=== PATIENT | male | born 1975 | race Caucasian/White ===

== ENCOUNTER 2018-07-13 21:49 | Emergency (ER) | payer BC ==
[~2018-07-13] VITALS: Ht 177.8 cm; Wt 80.0 kg
[2018-07-13 22:17] LABS: BASOPHILS % (AUTO) 0.4 % (0-1); EOSINOPHILS # (AUTO) 0.2 X10'3 (0-0.9); EOSINOPHILS % (AUTO) 2.7 % (0-6); HEMATOCRIT 43.4 % (42.0-52.0); HEMOGLOBIN 14.8 g/dl (14.0-17.9); LYMPHOCYTES # (AUTO) 3.3 X10'3 (1.1-4.8); LYMPHOCYTES % (AUTO) 35.9 % (21-51); MEAN CORPUSCULAR HEMOGLOBIN 28.8 PG (27.0-31.0); MEAN CORPUSCULAR HGB CONC 34.1 % (33.0-36.5); MEAN CORPUSCULAR VOLUME 84.4 FL (78-98); MEAN PLATELET VOLUME 8.2 FL (7.4-10.4); MONOCYTES # (AUTO) 0.6 X10'3 (0-0.9); MONOCYTES % (AUTO) 6.9 % (2-12); NEUTROPHILS # (AUTO) 4.9 X10'3 (1.8-7.7); NEUTROPHILS % (AUTO) 54.1 % (42-75); PLATELET COUNT 283 X10'3 (140-440); RED BLOOD COUNT 5.14 X10'6 (4.70-6.10); RED CELL DISTRIBUTION WIDTH 12.7 % (11.5-14.5); WHITE BLOOD COUNT 9.1 X10'3 (4.5-11.0)
[2018-07-13 22:30] LABS: ALANINE AMINOTRANSFERASE 25 U/L (12-78); ALBUMIN 4.1 G/DL (3.4-5.0); ALBUMIN/GLOBULIN RATIO 1.1 (1.1-1.5); ALKALINE PHOSPHATASE 81 IU/L (46-116); ANION GAP 12 (8-16); ASPARTATE AMINO TRANSFERASE 36 U/L (10-37); BILIRUBIN,TOTAL 0.7 MG/DL (0.1-1.0); BLOOD UREA NITROGEN 21 MG/DL (7-18); BUN/CREATININE RATIO 19.6 (5.4-32.0); CALCIUM 8.4 MG/DL (8.5-10.1); CHLORIDE 101 MMOL/L (99-107); CREATININE 1.07 MG/DL (0.60-1.10); GLUCOSE 163 MG/DL (70-104); SODIUM 139 MMOL/L (135-145); TOTAL CARBON DIOXIDE 26.1 MMOL/L (24-32); TOTAL PROTEIN 7.9 G/DL (6.4-8.2); eGFR 76 ML/MIN
[2018-07-13 22:37] LABS: PARTIAL THROMBOPLASTIN TIME 26 SECONDS (22-32)
[2018-07-13] MEDS ORDERED: magnesium oxide 400mg tablet PO ONE ×2 (22:40→23:00)
[2018-07-13] MEDS ORDERED: potassium Cl 20 mEq SR tablet PO ONE ×2 (22:40→23:00)
[2018-07-13 22:55] LABS: MAGNESIUM 2.3 MG/DL (1.5-2.4)
[2018-07-13 23:14] LABS: ETHANOL < 0.010 GM/DL (0.0-0.010)
[2018-07-13] MEDS ORDERED: POTA10TA19 PO (23:19)
[2018-07-13 23:27] VITALS: BP 127/95
== END 2018-07-13 23:28 | disposition home or self-care (01) ==
LOC: ER 21:49
DX: R07.89 Other chest pain (principal); F11.23 Opioid dependence with withdrawal; E87.6 Hypokalemia; R25.2 Cramp and spasm; Z88.1 Allergy status to other antibiotic agents
CPT/HCPCS: 36415; 71045; 80053; 80320; 83735; 84484; 85025; 85610; 85730; 93005; 99285

== ENCOUNTER 2019-10-25 00:27 | Emergency (ER) | payer BC ==
[~2019-10-25] VITALS: Ht 177.8 cm; Wt 90.9 kg
--- NOTE | 2019-10-25 00:47 | NUR ---
[facility] contacted.pt need medical exam and treat the symptoms per [facility].
--- NOTE | 2019-10-25 01:00 | NUR ---
DR BARAKAT AT BEDSIDE, PATIENT REFUSED ATIVAN ORDERED BY .
[2019-10-25 01:22] LABS: BASOPHILS # (AUTO) 0.1 X10'3 (0-0.2); BASOPHILS % (AUTO) 0.6 % (0-1); EOSINOPHILS # (AUTO) 0.3 X10'3 (0-0.9); EOSINOPHILS % (AUTO) 3.7 % (0-6); HEMATOCRIT 39.7 % (42.0-52.0); HEMOGLOBIN 14.1 g/dl (14.0-17.9); LYMPHOCYTES # (AUTO) 2.8 X10'3 (1.1-4.8); LYMPHOCYTES % (AUTO) 35.1 % (21-51); MEAN CORPUSCULAR HEMOGLOBIN 29.5 PG (27.0-31.0); MEAN CORPUSCULAR HGB CONC 35.6 g/dL (33.0-36.5); MEAN CORPUSCULAR VOLUME 82.8 FL (78-98); MEAN PLATELET VOLUME 7.7 FL (7.4-10.4); MONOCYTES # (AUTO) 0.8 X10'3 (0-0.9); NEUTROPHILS % (AUTO) 50.6 % (42-75); PLATELET COUNT 263 X10'3 (140-440); RED BLOOD COUNT 4.79 X10'6 (4.70-6.10); RED CELL DISTRIBUTION WIDTH 12.8 % (11.5-14.5); WHITE BLOOD COUNT 7.9 X10'3 (4.5-11.0)
[2019-10-25 01:33] LABS: ALANINE AMINOTRANSFERASE 24 U/L (12-78); ALBUMIN 3.8 G/DL (3.4-5.0); ALKALINE PHOSPHATASE 84 IU/L (46-116); ANION GAP 9 (8-16); ASPARTATE AMINO TRANSFERASE 26 U/L (10-37); BILIRUBIN,TOTAL 0.5 MG/DL (0.1-1.0); BLOOD UREA NITROGEN 24 MG/DL (7-18); BUN/CREATININE RATIO 23.8 (5.4-32.0); CALCIUM 8.4 MG/DL (8.5-10.1); CHLORIDE 104 MMOL/L (99-107); CREATININE 1.01 MG/DL (0.60-1.10); GLUCOSE 176 MG/DL (70-104); MAGNESIUM 2.1 MG/DL (1.5-2.4); POTASSIUM 3.3 MMOL/L (3.5-5.1); SODIUM 139 MMOL/L (135-145); TOTAL CARBON DIOXIDE 26.1 MMOL/L (24-32); TOTAL PROTEIN 7.5 G/DL (6.4-8.2); eGFR 81 ML/MIN
[2019-10-25 01:56] VITALS: BP 148/78
== END 2019-10-25 01:59 | disposition home or self-care (01) ==
LOC: ER 00:27
DX: R00.2 Palpitations (principal); R42 Dizziness and giddiness; Z88.1 Allergy status to other antibiotic agents
CPT/HCPCS: 36415; 71045; 80053; 83735; 84484; 85025; 93005; 99284

== ENCOUNTER 2020-02-07 12:36 | Emergency (ER) | payer BC ==
[~2020-02-07] VITALS: Ht 177.8 cm; Wt 90.9 kg
[2020-02-07 12:38] VITALS: BP 145/101
[2020-02-07] MEDS ORDERED: ALBU6.7H9 INH (13:29)
[2020-02-07] MEDS ORDERED: PRED20TA PO (13:29)
[2020-02-07] MEDS ORDERED: BENZ-38 PO (13:29)
[2020-02-07] MEDS ORDERED: AZIT250T2 PO (13:29)
== END 2020-02-07 13:42 | disposition home or self-care (01) ==
LOC: ER 12:36
DX: J04.0 Acute laryngitis (principal); Z88.1 Allergy status to other antibiotic agents; Z79.899 Other long term (current) drug therapy
CPT/HCPCS: 71045; 99283

== ENCOUNTER 2020-12-20 05:20 | Day surgery (SDC) | payer BC ==
[2020-12-13 11:15] LABS: BASOPHILS # (AUTO) 0.1 X10'3 (0-0.2); BASOPHILS % (AUTO) 0.8 % (0-1); EOSINOPHILS # (AUTO) 0.2 X10'3 (0-0.9); EOSINOPHILS % (AUTO) 2.5 % (0-6); LYMPHOCYTES # (AUTO) 1.9 X10'3 (1.1-4.8); LYMPHOCYTES % (AUTO) 27.6 % (21-51); MEAN CORPUSCULAR HEMOGLOBIN 28.9 PG (27.0-31.0); MEAN CORPUSCULAR HGB CONC 34.8 g/dL (33.0-36.5); MEAN CORPUSCULAR VOLUME 83.1 FL (78-98); MEAN PLATELET VOLUME 7.7 FL (7.4-10.4); MONOCYTES # (AUTO) 0.7 X10'3 (0-0.9); NEUTROPHILS # (AUTO) 4.1 X10'3 (1.8-7.7); NEUTROPHILS % (AUTO) 59.1 % (42-75); PRE OP HEMATOCRIT 42.7 % (42.0-52.0); PRE OP HEMOGLOBIN 14.9 g/dL (14.0-17.9); PRE OP PLATELET COUNT 276 X10'3 (140-440); RED BLOOD COUNT 5.14 X10'6 (4.70-6.10); RED CELL DISTRIBUTION WIDTH 12.6 % (11.5-14.5)
[2020-12-13 11:15] LABS: CLARITY,URINE CLEAR (Clear); COLOR,URINE YELLOW (Yellow); GLUCOSE, URINE NEGATIVE (Neg); KETONES,URINE NEGATIVE (Neg); LEUKOCYTE ESTERASE ,URINE NEGATIVE (Neg); NITRITES, URINE NEGATIVE (Neg); OCCULT BLOOD,URINE NEGATIVE (Neg); PROTEIN,URINE NEGATIVE (Neg); UROBILINOGEN,URINE 0.2 E.U/dL (0.2-1.0)
[2020-12-13 11:28] LABS: UA COLLECTION TYPE CLN CATCH MIDSTREAM
[2020-12-13 11:46] LABS: ALBUMIN 4.2 G/DL (3.4-5.0); ALKALINE PHOSPHATASE 82 IU/L (46-116); BLOOD UREA NITROGEN 22 MG/DL (7-18); CALCIUM 9.1 MG/DL (8.5-10.1); CHLORIDE 105 MMOL/L (99-107); CREATININE 0.88 MG/DL (0.60-1.10); PRE OP ALT 39 U/L (30-65); PRE OP ANION GAP 9 (8-16); PRE OP AST 40 U/L (10-37); PRE OP BILIRUB, TOTAL 0.6 MG/DL (0.0-1.0); PRE OP GLUCOSE 106 MG/DL (70-104); PRE OP POTASSIUM 3.8 MMOL/L (3.4-5.1); PRE OP SODIUM 144 MMOL/L (135-145); TOTAL CARBON DIOXIDE 29.9 MMOL/L (24-32); TOTAL PROTEIN 8.3 G/DL (6.4-8.2); eGFR > 90 ML/MIN
[2020-12-20] VITALS (11 sets, daily range): BP systolic 118–136; BP diastolic 71–89
[~2020-12-20] VITALS: Ht 175.3 cm; Wt 98.8 kg
[~2020-12-20 05:20] MED LIST: ALBU17AE26 PO; LEVO75TA56 PO; LORA10TA61 PO; METH10SO PO; MONT10TA32 PO; ringers solution, lacted 1,000 ML IV SCH
[2020-12-20] MEDS ORDERED: famotidine 20mg tablet PO ONE (05:30)
[2020-12-20] MEDS ORDERED: MESSAGE TO NURSING IV ONE (05:30)
[2020-12-20] MEDS ORDERED: albuterol 2.5 MG/3 ML nebule NEB ONE (05:30)
[2020-12-20] MEDS ORDERED: BUPIVAcaine/PF 2.5mg/ml (0.25%) 10ml vial ONE (07:13)
[2020-12-20] MEDS ORDERED: BUPIVAcaine/PF 2.5 mg/ml (0.25%) 30ml vial ONE (07:13)
[2020-12-20] MEDS ORDERED: BUPIVACAINE liposomal/PF 13.3 MG/ML vial IM ONE (07:14)
[2020-12-20] MEDS ORDERED: fentaNYL/PF 50MCG/1 ML 2ML syringe ONE ×2 (07:20→07:57)
[2020-12-20] MEDS ORDERED: midazolam 1 mg/ML 2ml injection ONE (07:20)
[2020-12-20] MEDS ORDERED: LIDOcaine 2% (20mg/ml) 5ml vial ONE (07:21)
[2020-12-20] MEDS ORDERED: rocuronium 10mg/ml inj IV ONE (07:21)
[2020-12-20] MEDS ORDERED: propofol inj 20 ML IV ONE (07:21)
[2020-12-20] MEDS ORDERED: clindamycin phosphate 150mg/ml inj. ONE ×2 (07:44→07:45)
[2020-12-20] MEDS ORDERED: glycopyrrolate 0.2mg/ml inj ONE (07:53)
[2020-12-20] MEDS ORDERED: dexamethasone sod phosphate 4mg/ml inj. ONE (07:53)
[2020-12-20] MEDS ORDERED: ondansetron/PF 4mg/2ml inj ONE (07:53)
[2020-12-20] MEDS ORDERED: neostigmine methylsulfate 1 MG/ML 10ml vial ONE (07:53)
[2020-12-20] MEDS ORDERED: ondansetron/PF 4mg/2ml inj IV PRN (08:25)
[2020-12-20] MEDS ORDERED: ringers solution, lacted 1,000 ML IV SCH (08:25)
[2020-12-20] MEDS ORDERED: meperidine/PF 25mg/ml syringe IV PRN ×3 (08:25)
[2020-12-20] MEDS ORDERED: morphine 4 MG/ML inj SYRINge IV PRN (08:25)
[2020-12-20] MEDS ORDERED: proCHLORperazine 10 MG/2 ml inj IV PRN (08:25)
[2020-12-20] MEDS ORDERED: morphine 2 MG/ML inj. syringe IV PRN (08:25)
[2020-12-20] MEDS ORDERED: acetaminophen 1,000mg/100ml IV 100 ML IV ONE (09:13)
[2020-12-20] MEDS ORDERED: ketorolac trometh. 30mg/ml inj. ONE (09:13)
--- NOTE | 2020-12-20 09:30 | NUR ---
Received from OR via BED , accompanied by Anesthesiologist DR ATKINSON and report given by Anesthesiolgist. PATIENT WAKING UP BUT VERY APNEC, NARCAN GIVEN PER DR ATKINSON..4MCG, NO S/S PAIN, V/S WNL, NEUROVASCULAR CHECKS INTACT, 20G PIV RUE, SCD ON, DERMABONDED LAP SIGHTS OF ABDOMEN CDI.
[2020-12-20] MEDS ORDERED: naloxone 0.4 mg/ml inj ONE (09:35)
[2020-12-20] MEDS ORDERED: ipratropium/albuterol 3ml nebule IH ONE (09:45)
--- NOTE | 2020-12-20 09:45 | NUR ---
PATIENT WAKING UP NOW, MOANING- SEE EMAR
--- NOTE | 2020-12-20 10:06 | NUR ---
VERBAL ORDER RECIEVED FROM DR FIELDS THAT HE DID NOT CARE IF HE DIDNT WRITE ORDERS ON THIS PATIENT AND TO WRITE DISCHARGE ORDERS THE SAME ON HIM ALL HIS OTHER PATIENTS. ORDERS WRITTEN BASED ON DR BLAKELY USUALLY PATTERN OF ORDERS FOR TYPICAL INGUINAL SURGERY BASED ON WHAT I WAS INSTRUCTED TO DO BY DR FIELDS DUE TO HIS ABILITY OR REFUSAL TO USE HIS WORDS TO COMMUNICATE ACCURATE CLEAR ORDERS.
[2020-12-20] MEDS ORDERED: HYDROcodone/acetaminophen 10/325mg tab PO ONE (10:15)
--- NOTE | 2020-12-20 11:20 | NUR ---
PATIENT A&OX4, DENIES PAIN, V/S WNL, NEUROVASCULAR CHECKS INTACT, 20G PIV RUE D/C, SCD OFF, LAP SIGHTS OF ABDOMEN CDI. SCRIPT SENT TO PATIENT PHARMACY FROM OFFICE AND HE HAS VOIDED. I HAVE REVIEWED D/C INSTRUCTIONS WITH PATIENT AND FAMILY AND THEY HAVE VERBALIZED UNDERSTANDING. PATIENT D/C HOME WITH ALL BELONGINGS AND FAMILY GAVE TRANSPORT HOME.
== END 2020-12-20 11:20 | disposition home or self-care (01) ==
LOC: PAS 05:20
PROVIDERS: ATTEND Surgery
DX: K40.90 Unilateral inguinal hernia, without obstruction or gangrene, not specified as recurrent (principal); D17.79 Benign lipomatous neoplasm of other sites; J45.909 Unspecified asthma, uncomplicated; F41.9 Anxiety disorder, unspecified; F32.9 Major depressive disorder, single episode, unspecified; F11.11 Opioid abuse, in remission; Z79.899 Other long term (current) drug therapy; Z20.822 Contact with and (suspected) exposure to COVID-19; Z88.1 Allergy status to other antibiotic agents; Z98.890 Other specified postprocedural states; Z85.850 Personal history of malignant neoplasm of thyroid
CPT/HCPCS: 36415; 49650; 80053; 81003; 82948; 85025; 93005; 94640; 94760; C1758; C1781; C9290; J0131; J1100; J1885; J2001; J2175; J2250; J2310; J2405; J2704; J2710; J3010; J3490; S2900; U0003; A4215; A4618; J7120

== ENCOUNTER 2021-02-02 09:46 | Outpatient (CLI) | payer BC ==
[~2021-02-02 09:46] MED LIST changes: +barium sulfate 450ml oral suspension ONE; -ringers solution, lacted 1,000 ML IV SCH
[2021-02-02] MEDS ORDERED: SIMETHICONE/SOD BICARB/CIT AC PACKET PO ONE (12:00)
== END 2021-02-02 23:59 | disposition home or self-care (01) ==
LOC: RAD 09:46
PROVIDERS: ATTEND Family Medicine
DX: R13.10 Dysphagia, unspecified (principal)
CPT/HCPCS: 74220

== ENCOUNTER 2022-03-09 10:42 | Emergency (ER) | payer BC ==
[~2022-03-09] VITALS: Ht 175.3 cm; Wt 88.0 kg
[~2022-03-09 10:42] MED LIST changes: +MONT-40 PO; -MONT10TA32 PO; -barium sulfate 450ml oral suspension ONE
[2022-03-09 11:29] LABS: BASOPHILS % (AUTO) 0.6 % (0-1); EOSINOPHILS # (AUTO) 0.1 X10'3 (0-0.9); HEMATOCRIT 41.8 % (42.0-52.0); HEMOGLOBIN 14.7 g/dl (14.0-17.9); LYMPHOCYTES # (AUTO) 1.9 X10'3 (1.1-4.8); LYMPHOCYTES % (AUTO) 36.5 % (21-51); MEAN CORPUSCULAR HGB CONC 35.2 g/dL (33.0-36.5); MEAN CORPUSCULAR VOLUME 82.4 FL (78-98); MEAN PLATELET VOLUME 7.7 FL (7.4-10.4); MONOCYTES # (AUTO) 0.4 X10'3 (0-0.9); MONOCYTES % (AUTO) 8.8 % (2-12); NEUTROPHILS # (AUTO) 2.7 X10'3 (1.8-7.7); NEUTROPHILS % (AUTO) 52.1 % (42-75); PLATELET COUNT 279 X10'3 (140-440); RED BLOOD COUNT 5.08 X10'6 (4.70-6.10); RED CELL DISTRIBUTION WIDTH 12.7 % (11.5-14.5); WHITE BLOOD COUNT 5.1 X10'3 (4.5-11.0)
[2022-03-09 11:46] LABS: ALANINE AMINOTRANSFERASE 29 U/L (12-78); ALBUMIN 4.2 G/DL (3.4-5.0); ALBUMIN/GLOBULIN RATIO 1.2 (1.1-1.5); ALKALINE PHOSPHATASE 78 IU/L (46-116); ANION GAP 6 (8-16); ASPARTATE AMINO TRANSFERASE 43 U/L (10-37); BILIRUBIN,TOTAL 1.3 MG/DL (0.1-1.0); BLOOD UREA NITROGEN 20 MG/DL (7-18); BUN/CREATININE RATIO 22.5 (5.4-32.0); CALCIUM 8.9 MG/DL (8.5-10.1); CHLORIDE 105 MMOL/L (99-107); CREATININE 0.89 MG/DL (0.60-1.10); GLUCOSE 103 MG/DL (70-104); POTASSIUM 3.6 MMOL/L (3.5-5.1); SODIUM 139 MMOL/L (135-145); TOTAL CARBON DIOXIDE 27.6 MMOL/L (24-32); TOTAL PROTEIN 7.7 G/DL (6.4-8.2); eGFR > 90 ML/MIN
[2022-03-09 15:01] VITALS: BP 118/74
== END 2022-03-09 15:04 | disposition home or self-care (01) ==
LOC: ER 10:43
DX: R07.89 Other chest pain (principal); F41.9 Anxiety disorder, unspecified; M79.602 Pain in left arm; F32.9 Major depressive disorder, single episode, unspecified; Z88.1 Allergy status to other antibiotic agents; Z79.899 Other long term (current) drug therapy; Z86.711 Personal history of pulmonary embolism
CPT/HCPCS: 36415; 71045; 80053; 83880; 84484; 85025; 93005; 99285

== ENCOUNTER 2023-07-22 17:01 | Emergency (ER) | payer BC ==
[~2023-07-22] VITALS: Ht 175.3 cm; Wt 84.4 kg
[2023-07-22 17:22] LABS: BASOPHILS # (AUTO) 0.1 X10'3 (0-0.2); EOSINOPHILS # (AUTO) 0.3 X10'3 (0-0.9); EOSINOPHILS % (AUTO) 3.9 % (0-6); HEMATOCRIT 44.5 % (42.0-52.0); HEMOGLOBIN 15.3 g/dl (14.0-17.9); LYMPHOCYTES # (AUTO) 2.5 X10'3 (1.1-4.8); LYMPHOCYTES % (AUTO) 37.6 % (21-51); MEAN CORPUSCULAR HEMOGLOBIN 29.6 PG (27.0-31.0); MEAN CORPUSCULAR HGB CONC 34.4 g/dL (33.0-36.5); MEAN CORPUSCULAR VOLUME 86.3 FL (78-98); MONOCYTES # (AUTO) 0.6 X10'3 (0-0.9); MONOCYTES % (AUTO) 9.3 % (2-12); NEUTROPHILS # (AUTO) 3.2 X10'3 (1.8-7.7); NEUTROPHILS % (AUTO) 48.2 % (42-75); PLATELET COUNT 276 X10'3 (140-440); RED BLOOD COUNT 5.16 X10'6 (4.70-6.10); RED CELL DISTRIBUTION WIDTH 12.6 % (11.5-14.5); WHITE BLOOD COUNT 6.7 X10'3 (4.5-11.0)
[2023-07-22 17:35] VITALS: TEMP 97.8
[2023-07-22 17:35] LABS: ALANINE AMINOTRANSFERASE 34 U/L (12-78); ALBUMIN 4.1 G/DL (3.4-5.0); ALBUMIN/GLOBULIN RATIO 1.1 (1.1-1.5); ALKALINE PHOSPHATASE 84 IU/L (46-116); ANION GAP 6 (8-16); ASPARTATE AMINO TRANSFERASE 49 U/L (10-37); BILIRUBIN,TOTAL 0.8 MG/DL (0.1-1.0); BLOOD UREA NITROGEN 20 MG/DL (7-18); BUN/CREATININE RATIO 17.7 (10.0-20.0); CALCIUM 9.1 MG/DL (8.5-10.1); CHLORIDE 103 MMOL/L (99-107); CREATININE 1.13 MG/DL (0.60-1.10); GLUCOSE 114 MG/DL (70-104); POTASSIUM 3.6 MMOL/L (3.5-5.1); SODIUM 141 MMOL/L (135-145); TOTAL CARBON DIOXIDE 32.3 MMOL/L (24-32); TOTAL PROTEIN 7.7 G/DL (6.4-8.2); eGFR 70 ML/MIN
[2023-07-22 17:42] LABS: PRO BRAIN NATRIURETIC PEPTIDE 47 PG/ML (0-125)
[2023-07-22] MEDS ORDERED: LIDOcaine Viscous 15ml cup MM ONE (20:05)
[2023-07-22] MEDS ORDERED: mag hydrox/Alum hydrox/simeth 30ml oral suspension PO ONE (20:05)
[2023-07-22 20:15] VITALS: BP 132/88
[2023-07-22] MEDS ORDERED: potassium Cl 20 mEq SR tablet PO STA (21:24)
[2023-07-22 21:49] VITALS: PULSE 68; RESP 14; O2SAT 97
== END 2023-07-22 21:52 | disposition home or self-care (01) ==
LOC: ER 17:02
DX: R07.89 Other chest pain (principal); Z90.49 Acquired absence of other specified parts of digestive tract; Z79.2 Long term (current) use of antibiotics; Z79.899 Other long term (current) drug therapy
CPT/HCPCS: 36415; 71045; 80053; 83880; 84484; 85025; 93005; 99285

== ENCOUNTER 2024-03-05 10:17 | Emergency (ER) | payer OTHER, BC ==
[~2024-03-05] VITALS: Ht 175.3 cm; Wt 84.4 kg
[2024-03-05] MEDS: diazepam inj 5 MG/ML inj. IV ONE (10:35)
[2024-03-05] MEDS: fentaNYL/PF 50MCG/1 ML 2ML syringe IV ONE (10:36)
[2024-03-05] MEDS: ondansetron/PF 4mg/2ml inj IV ONE (10:42)
[2024-03-05 10:43] VITALS: TEMP 98.6
[2024-03-05] MEDS ORDERED: CLIN300C54 PO (11:53)
[2024-03-05] MEDS: HYDROmorphone 1 mg/ml syringe IV ONE (12:38)
[2024-03-05 13:29] VITALS: BP 129/78; PULSE 80; RESP 18; O2SAT 97
== END 2024-03-05 13:33 | disposition home or self-care (01) ==
LOC: ER 10:17
DX: S52.502A Unspecified fracture of the lower end of left radius, initial encounter for closed fracture (principal); S52.602A Unspecified fracture of lower end of left ulna, initial encounter for closed fracture; R51.9 Headache, unspecified; M54.2 Cervicalgia; Z88.1 Allergy status to other antibiotic agents; Z79.2 Long term (current) use of antibiotics; Z79.899 Other long term (current) drug therapy; V29.888A Rider (driver) (passenger) of other motorcycle injured in other specified transport accidents, initial encounter; Y93.89 Activity, other specified; Y92.89 Other specified places as the place of occurrence of the external cause; Y99.8 Other external cause status
CPT/HCPCS: 29125; 70450; 72125; 73110; 73630; 96374; 96375; 99285; J1170; J2405; J3010; J3360; J7030; A6253; A6258; A6449

== ENCOUNTER 2024-09-07 11:13 | Emergency (ER) | payer BC ==
[~2024-09-07] VITALS: Ht 175.3 cm; Wt 84.1 kg
[2024-09-07] MEDS ORDERED: BENZ-38 PO (12:21)
[2024-09-07] MEDS ORDERED: ALBU8HFA INH (12:21)
[2024-09-07 12:25] VITALS: BP 130/70; PULSE 80; RESP 16; TEMP 98.2; O2SAT 99
== END 2024-09-07 12:26 | disposition home or self-care (01) ==
LOC: ER 11:13
DX: J22 Unspecified acute lower respiratory infection (principal); F32.A Depression, unspecified; Z88.1 Allergy status to other antibiotic agents; Z90.89 Acquired absence of other organs; Z79.899 Other long term (current) drug therapy; Z20.822 Contact with and (suspected) exposure to COVID-19
CPT/HCPCS: 36415; 71045; 87502; 87503; 87811; 99284